=== PATIENT | male | born 1995 | race Caucasian/White ===

== ENCOUNTER 2020-07-26 08:15 | Emergency (ER) | payer MEDICAID, SELFPAY ==
[2020-07-26 08:24] VITALS: BP 132/76; PULSE 116; RESP 16; TEMP 37.1; O2SAT 98; BMI 23.6
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
--- NOTE | 2020-07-26 08:47 | XR_ITS ---
EXAMINATION: XR HAND, RIGHT CLINICAL INFORMATION: Pain COMPARISON: None TECHNIQUE: PA, lateral, and oblique views of the right hand. FINDINGS: Bone alignment is normal. No acute fracture or dislocation is seen. There is question of a old trauma to the fifth metacarpal head. Joint spaces are normal. Soft tissues are normal. XR/XR hand RT min 3V IMPRESSION: No acute fracture seen. Question old trauma to the fifth metacarpal head.
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
[2020-07-26 10:00] VITALS: BP 121/73; PULSE 100; RESP 16; TEMP 37.1; O2SAT 98
--- NOTE | 2020-07-26 11:10 | PC.NURSE ---
[facility] PT TX LINE CALLED @ ATTORNEY MEGHAN REQUEST @ THIS TIME SOPHIE ANSWERS, TAKES PT INFO AND ASKS TO SPEAK WITH MEGHAN CHRISTIANSON TAKES OVER CALL RIGHT AWAY
--- NOTE | 2020-07-26 11:43 | PC.NURSE ---
TAYLOR GÓMEZ AND PT AWARE ALL TEST RESULTS, PT TO BE [place] [facility] [place]AL[place] AND [place]REATMENT
--- NOTE | 2020-07-26 12:25 | PC.NURSE ---
CHRISTOPHER PATRICK INSERTED IV
== END 2020-07-26 13:00 | disposition short-term general hospital (02) ==
PROVIDERS: Emergency Provider Emergency Medicine
DX: S02.2XXA Fracture of nasal bones, initial encounter for closed fracture (principal); R07.0 Pain in throat; M79.641 Pain in right hand; G44.309 Post-traumatic headache, unspecified, not intractable; Y04.8XXA Assault by other bodily force, initial encounter; Y93.9 Activity, unspecified; Y92.410 Unspecified street and highway as the place of occurrence of the external cause; Y99.9 Unspecified external cause status; F17.200 Nicotine dependence, unspecified, uncomplicated; Z71.6 Tobacco abuse counseling
CPT/HCPCS: 70450; 70486; 72125; 73130; 99285; 99291